=== PATIENT | female | born 1960 | race Caucasian/White ===

== ENCOUNTER 2024-10-02 09:01 | Outpatient (AMB) | payer OTHER, BC, SELFPAY ==
--- NOTE | 2024-10-02 09:02 | A.OFFVIS_ITS ---
Vital Signs 10/02/24 09:03 Height 5 ft 3 in Weight 124 lb BMI 22.0 Intake Visit Reasons: Left shoulder pain, Left lower leg pain Intake Note: Mateo is a 64 year old right hand dominant female who presents today as a new patient for evaluation of left shoulder pain and left knee pain status post work-related injury December,. Patient reports the pain is located on the lateral aspect of the shoulder radiating down to the upper arm, as well as the lateral aspect of the left knee, radiating down to the left lower extremity. Patient shares pain worsens when sleeping, bending down, or sitting. Has tried formal PT for both her shoulder and knee. She has also tried OTC pain medications. She was also given a knee brace but she did not use it much. Denies prior surgeries to the left shoulder or left knee. The patient states that she has been seen by another orthopedic surgeon. She was told that she might need reverse total shoulder replacement surgery. She was also told that she might need surgery on her left lower leg for superficial peroneal nerve entrapment . She presents for a 2nd opinion. She states that her symptoms have gotten better since last year. Allergies sulfamethoxazole [From Bactrim] Allergy (Verified 10/02/24 09:08) Hives trimethoprim [From Bactrim] Allergy (Verified 10/02/24 09:08) Hives Physical Exam Vital Signs: BMI result Body Mass Index 22.0 Extrem Other: Left shoulder examination shows slightly decreased range of motion when compared to her right shoulder, pain with range of motion Left lower leg examination shows focal tenderness along the lateral/mid aspect of her leg, no overlying skin lesions Results Reviewed Results Reviewed: MRI of the patient's left shoulder shows glenohumeral joint degenerative changes, no rotator cuff tearing Assessment & Plan Assessment & Plan (1) Left shoulder pain: Code(s): M25.512 - Pain in left shoulder (2) Arthritis of left shoulder region: Code(s): M19.012 - Primary osteoarthritis, left shoulder Category: Medical (3) Pain in left lower leg: Code(s): M79.662 - Pain in left lower leg Category: Medical Plan Ms. Boggs presents with left shoulder pain due to glenohumeral joint arthritis as well as left lower leg pain of unclear etiology. Based on the severity of the patient's glenohumeral joint arthritis I do not feel that an arthroscopic procedure would be of long-term benefit. At this point it appears as though the patient's left shoulder pain is tolerable to her. She would be a candidate for reverse total shoulder replacement surgery if her symptoms continue to limit her activities of daily living, ability to sleep well or her ability to swim for exercise. My partner, Dr. Bowman, performs reverse total shoulder replacement surgery. I would be more than happy to arrange for the patient to have a consultation with him if she chooses to do so. Otherwise she will continue with her [id number] exercises. 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 The patient states that another orthopedic surgeon recommended surgery for this problem. I did recommend that the patient be evaluated by a neurologist prior to considering nerve surgery to confirm that this is the actual diagnosis. The patient may be a candidate for nerve conduction studies or even a nerve block which would certainly help confirm the diagnosis. The patient will contact my office if she wishes for a referral to a neurologist here in the [facility] area. I spent 22 minutes in reviewing the patient's records and imaging studies, seeing the patient and documenting in the medical record. Coding Level of Care Code New Pt Level 3 (90578) Diagnoses Left shoulder pain M25.512 Arthritis of left shoulder region M19.012 Pain in left lower leg M79.662
[2024-10-02 09:03] VITALS: BMI 22.0
== END 2024-10-02 09:44 | disposition home or self-care (01) ==
LOC: HO.HOS 09:01
PROVIDERS: PCP Family Medicine; Visit Provider Orthopaedic Surgery
DX: M25.512 Pain in left shoulder (principal); M19.012 Primary osteoarthritis, left shoulder; M79.662 Pain in left lower leg
CPT/HCPCS: 99203

== ENCOUNTER → 2024-10-02 09:01 | Outpatient (BNVA) | payer OTHER, BC, SELFPAY | PROVIDERS: PCP Family Medicine; Visit Provider Orthopaedic Surgery | DX: M25.512 Pain in left shoulder (principal); M19.012 Primary osteoarthritis, left shoulder; M79.662 Pain in left lower leg | CPT/HCPCS: 99202 ==